=== PATIENT | male | born 1950 | race Caucasian/White ===

== ENCOUNTER 2019-05-20 18:10 | Emergency (ER) | payer MEDICARE, MEDICAID ==
[~2019-05-20] VITALS: Ht 190.5 cm; Wt 84.1 kg
[2019-05-20 18:12] VITALS: Ht 190.5 cm; Wt 84.1 kg
[2019-05-20] MEDS ORDERED: ASPIRIN325 MG PO (18:15)
[2019-05-20] MEDS ORDERED: DONEPEZIL HCL10 MG PO (18:15)
[2019-05-20] MEDS ORDERED: MELATONIN 3 MG1 TAB PO (18:16)
[2019-05-20] MEDS ORDERED: CLARITIN 10 MG10 MG PO (18:16)
[2019-05-20] MEDS ORDERED: ZOLOFT50 MG PO (18:16)
[2019-05-20] MEDS ORDERED: LISINOPRIL20 MG PO (18:16)
[2019-05-20] MEDS ORDERED: NAMENDA5 MG PO (18:17)
[2019-05-20] MEDS ORDERED: ATIVAN0.5 MG PO (18:18)
[2019-05-20] MEDS ORDERED: HYDROCODON-ACE1 EAC7 PO (18:19)
[2019-05-20] MEDS ORDERED: MIRALAX17 GM PO (18:19)
[2019-05-20] MEDS ORDERED: ACETAMINOPHEN325 MG PO (18:20)
[2019-05-20 18:43] LABS: APPEARANCE SL CLDY (CLEAR); COLOR DK YELLOW (YELLOW)
[2019-05-20 18:44] LABS: BILIRUBIN NEGATIVE (NEGATIVE); GLUCOSE NEGATIVE (NEGATIVE); KETONE NEGATIVE (NEGATIVE); NITRITE NEGATIVE (NEGATIVE); PROTEIN NEGATIVE (NEGATIVE); SPECIFIC GRAVITY 1.025 (1.005-1.020); UROBILINOGEN NORMAL (NORMAL)
[2019-05-20 18:46] LABS: BACTERIA FEW /hpf (NEGATIVE); RED CELLS - URINE 0-5 /hpf (0-5); WHITE CELLS - URINE OCC /hpf (NEGATIVE)
[2019-05-20 19:15] VITALS: BP 145/76
== END 2019-05-20 21:35 ==
LOC: D.ER 18:10
PROVIDERS: Family Medicine
DX: Z71.1 Person with feared health complaint in whom no diagnosis is made (principal); W19.XXXA Unspecified fall, initial encounter; G30.9 Alzheimer's disease, unspecified; F02.80 Dementia in other diseases classified elsewhere, unspecified severity, without behavioral disturbance, psychotic disturbance, mood disturbance, and anxiety

== ENCOUNTER 2019-07-06 07:56 | Inpatient (IN) | payer MEDICARE ==
[~2019-07-06 07:56] MED LIST: ACETAMINOPHEN325 MG PO; ASPIRIN325 MG PO; ATIVAN0.5 MG PO; CLARITIN 10 MG10 MG PO; DONEPEZIL HCL10 MG PO; HYDROCODON-ACE1 EAC7 PO; LISINOPRIL20 MG PO; MELATONIN 3 MG1 TAB PO; MIRALAX17 GM PO; NAMENDA5 MG PO; ZOLOFT50 MG PO
--- NOTE | 2019-07-06 08:21 | NUR ---
BREAKFAST SERVED TO PT.
--- NOTE | 2019-07-06 08:39 | NUR ---
CLEANED PT OF BM. TOL. CASEY.
--- NOTE | 2019-07-06 09:00 | NUR ---
CALL TO SEBASTIAN, NURSE AT [facility] STATES THEY WANT PT TO GO TO [facility]. THEY ARE HAVING TOO MUCH TROUBLE WITH HIM. AND HE NEEDS TO BE EVALUATED THERE.
[2019-07-06 09:18] LABS: BASOPHILS 0.5 % (0-2); EOSINOPHILS 4.9 % (0-7); HEMOGLOBIN 11.6 g/dL (13.5-17.5); IMMATURE GRANULOCYTES 0.3 % (0-5); LYMPHOCYTES 21.5 % (15-50); MCH 28.6 pg (26.0-34.0); MCHC 32.2 g/dL (31.0-37.0); MCV 88.9 fL (80.0-100.0); MEAN PLATELET VOLUME 9.1 fL (7.4-10.4); MONOCYTES 9.8 % (2-11); PLATELET COUNT 169 10x3/uL (130-400); RBC 4.05 10x6/uL (4.20-6.10); RDW 15.7 % (11.5-14.5); WBC 3.7 10x3/uL (4.8-10.8)
--- NOTE | 2019-07-06 09:22 | NUR ---
ALF TAKING PT.
[2019-07-06 09:27] LABS: ANION GAP 8.8 mmol/L (8-16); CALCIUM 9.1 mg/dL (8.5-10.1); CARBON DIOXIDE 29.2 mmol/L (21.0-32.0); CREATININE - SERUM 1.2 mg/dL (0.6-1.3)
[2019-07-06 09:29] LABS: APTT 29.8 SECONDS (22.8-39.4); INR 1.14 (0.85-1.17); PROTIME 14.1 SECONDS (11.6-15.0)
[2019-07-06 09:58] LABS: ACETAMINOPHEN 0.3 ug/mL (10.0-30.0); ALBUMIN 2.8 g/dL (3.4-5.0); BILIRUBIN - TOTAL 0.34 mg/dL (0.2-1.3); CHOL - HDL RATIO 5.9 ratio (2.3-4.9); MAGNESIUM - SERUM 2.3 mg/dL (1.8-2.4); PROTEIN - SERUM 6.3 g/dL (6.4-8.2); THYROID STIMULATING HORMONE 1.5 uIU/mL (0.36-3.74)
[2019-07-06 10:00] VITALS: BP 108/68
--- NOTE | 2019-07-06 12:00 | NUR ---
REC'D PT FROM E.R. PER W/C WITH E.R. STAFF. PT WAS CALM AND FRIENDLY WITH STAFF. PT TRANFER WITH 2X PER STAFF. PT IS CONFUSED, ALERT TO SELF ONLY. PT ALLOWED STAFF TO OBTAIN WEIGHT, VITALS AND PARTIAL ASSESSMENT OF SKIN. PT COULD NOT STAND LONG ENOUGH FOR NURSE TO ASSESS BUTTOCKS. PT ONLY CAME WITH BELONINGS HE IS WEARING. VITALS: B/P: 100/68, P: 77, R:20, T: 97.8, O2 STAT: 100%. PT WEIGHT PER W/C SCALE 170.4. PT IS INCONTIENT WITH STOOL AND URINE. PT DOES HAVE A RIGHT HAND SKIN TEAR, PATIENT MOVING AROUND UNABLE TO MEASURE. LEFT FOREARM BRUISES AND SKIN TEAR TO POSTERIOR UPPER FOREARM. DRESSED DUE TO BLEEDING. UNABLE TO CONTACT FAMILY DUE TO FACILITY PHONE NUMBER CALLING INCORRECT FAMILY MEMBERS. UNABLE TO OBTAIN PASSCODE FROM FAMILY. ATTEMPTED TO ORIENT TO ROOM AND SURROUNDINGS PT UNABLE TO BE ORIENTED DUE TO LACK OF PERCEPTION AND POOR INSIGHT TO SITUATION. CHAIR ALARM IN PLACE AND ACTIVE. WILL BEGIN PLAN OF CARE.
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
[2019-07-06] MEDS ORDERED: ZOLOFT100 MG (13:28)
[2019-07-06] MEDS ORDERED: COLACE100 MG (13:29)
[2019-07-06] MEDS ORDERED: DEPAKOTE SPRIN125 MG (13:29)
[2019-07-06 13:32] VITALS: BP 108/98
[2019-07-06 21:00] VITALS: BP 119/69
--- NOTE | 2019-07-06 23:54 | NUR ---
PATIENT IS LETHARGIC, CONFUSED, WILL NOT COMMUNICATE. COMPLIANT WITH HIS MELATONIN. NOT ABLE TO MAKE NEEDS KNOWN.
[2019-07-07 09:12] VITALS: Wt 76.8 kg
--- NOTE | 2019-07-07 10:00 | NUR ---
STAFF ATTEMPTED TO REDIRECT PT WHEN HE BECAME COMBATIVE WITH STAFF. UNABLE TO REDIRECT PT AT THIS TIME. 3X STAFF ATTEMPTED. ATIVAN 0.5 MG AND HALDOL 2 MG IM GIVEN PER DR. ALONSO ORDER. WILL REASSESS FOR EFFECTIVENESS.
--- NOTE | 2019-07-07 11:17 | NUR ---
PT IS AWAKE AND ALERT TO PERSON ONLY. PT HAS NO INSIGHT INTO SITUATION AT THIS TIME. CALM AND COOPERATIVE WITH ASSESSMENT. PRESCRIBED MEDS PROVIDED ORDERED. MEDS CRUSHED IN PUDDING. TOLERATED WELL. MED COMPLIANT. REDIRECT AND REORIENT NEEDED. FALL PRECAUTIONS IN PLACE. WILL CPOC.
--- NOTE | 2019-07-07 11:50 | NUR ---
PRN EFFECTIVE AT THIS TIME.
--- NOTE | 2019-07-07 11:50 | HP ---
PATIENT: LASHAE DAMON MEDICAL RECORD: [id number] ACCOUNT: [id number] LOCATION:PIOTR [id number] : 49 ADMISSION DATE: 07/06/19 PCP: ANATOLIY CARRASQUILLO MD HISTORY AND PHYSICAL EXAMINATION IDENTIFYING DATA: The patient is 69 years old and he is admitted to the hospital on a voluntary basis. CHIEF COMPLAINT: Agitation. HISTORY OF PRESENT ILLNESS: The patient is referred to us by the [facility]. Apparently, he became combative with the staff and was not redirectable. I do not have details about what he has done and he is not able to provide any. He was sent to the Emergency Room for evaluation via ambulance and was not combative there. He was admitted here where he was combative and required medication to calm him. PAST MEDICAL HISTORY: Significant for hypertension. PAST PSYCHIATRIC HISTORY: Significant for an established diagnosis of dementia. FAMILY HISTORY: Unknown. ALLERGIES: No known drug allergies. CURRENT MEDICATIONS: Include, Aricept, aspirin, lisinopril, Claritin, melatonin, Zoloft, Namenda, Ativan, hydrocodone, MiraLax, and Tylenol. MENTAL STATUS EXAMINATION: The patient is awake, alert, and oriented to person and place, but not to time or situation. His mood is anxious. His affect is constricted. Thought processes are disorganized and he has no active thoughts of harming himself or others and no psychotic symptoms. SOCIAL HISTORY: The patient is . He does have adult children who are involved with his care. I do not have history about substance abuse or occupational functioning. ASSETS: Supportive family members. LIABILITIES: Limited insight. DIAGNOSTIC IMPRESSION: AXIS I: Advanced major neurocognitive disorder of the Alzheimer's type with behavioral disturbances. AXIS II: None. AXIS III: Hypertension. AXIS IV: Moderate. AXIS V: Global assessment of functioning is 35. PLAN: At this time, the patient is admitted to the hospital secondary to aggressive behavior at the custodial. The aggression is related to confusion associated with a dementing illness. The patient will be comprehensively evaluated from both a medical, psychological, and social standpoint. He will be treated with both mood stabilizing and memory enhancing medications as deemed appropriate. His long-term prognosis is guarded and he will be returned to the HISTORY AND PHYSICAL [id number] LASHAE DAMON custodial once stabilized from a behavioral standpoint. TRANSINT:[id number] Voice Confirmation ID: [id number] DOCUMENT ID: [id number] DENIS ALONSO MD at 1150 CC: [id number] DICTATION DATE: 07/06/19 1600 BRAZE OPERATOR: 07/06/19 1854 ADM IN [facility] [address] [place] [address]
--- NOTE | 2019-07-07 20:21 | NUR ---
PATIENT RECEIVED IN DAYROOM, VERY CONFUSED, NOT AWARE OF SELF, TIME OR SITUATION, COMPLIANT WITH MEDS. WILL FOLLOW POC
[2019-07-08 01:44] VITALS: BP 123/69
[2019-07-08 11:27] VITALS: BP 140/65
--- NOTE | 2019-07-08 13:20 | PN ---
PATIENT:LASHAE DAMON MEDICAL RECORD: [id number] LOCATION:PIOTR AlvaradoDavid112 ADMISSION DATE: 07/06/19 PROGRESS NOTE DATE OF SERVICE: 07/07/2019 SUBJECTIVE: The patient's case was discussed with staff. He has no new complaint. OBJECTIVE: The patient has been very agitated, confused, threatening, and did require some p.r.n. medication today. He has no recollection of this. ASSESSMENT: Dementia. PLAN: The patient is going to be started on a scheduled dose of Geodon to assist with his agitated behavior. He will be monitored for clinical changes associated with its use. His long-term prognosis is guarded. TRANSINT:[id number] Voice Confirmation ID: [id number] DOCUMENT ID: [id number] DENIS ALONSO MD at 1320 CC: [id number] DICTATION DATE: 07/07/19 1200 GOLD LEAF LAYER: 07/07/19 1349 ADM IN [place] [address] [place] [address]
--- NOTE | 2019-07-08 14:49 | NUR ---
PT IS AWAKE AND ALERT TO PERSON ONLY. CALM AND COOPERATIVE WITH ASSESSMENT. PRESCRIBED MEDS PROVIDED ORDERED. MED COMPLIANT. PT CAN BE VERY COMBATIVE WITH STAFF DURING CARE. HARD TO REDIRECT AT TIMES. REDIRECT AND REORIENT NEEDED. FALL PRECAUTIONS IN PLACE. WILL CPOC.
--- NOTE | 2019-07-08 17:27 | NUR ---
SW STILL UNABLE TO GET ASSESSMENT DUE TO PT'S COGNITION AND NO CONTACTS AT THIS TIME.
[2019-07-08 20:00] VITALS: BP 98/60
--- NOTE | 2019-07-08 21:39 | NUR ---
RECEIVED IN HALLWAY OUTSIDE OF NURSES STATION. CALM AND COOPERATIVE WITH CARE AND ASSESSMENT. NO AGGRESSIVE BEHAVIORS. REDIRECT AND REORIENT NEEDED. RESTING IN BED WITH EYES CLOSED AT THIS TIME. CONTINUE PLAN OF CARE.
[2019-07-09 10:55] VITALS: BP 116/72
--- NOTE | 2019-07-09 15:13 | PN ---
PATIENT:LASHAE DAMON MEDICAL RECORD: [id number] LOCATION:Christiano[facility]OGER[facility]af Bray112 ADMISSION DATE: 07/06/19 PROGRESS NOTE DATE OF SERVICE: 07/08/2019 SUBJECTIVE: The patient's case was discussed with staff. He has no new complaint. OBJECTIVE: The patient denies that he would seek to harm himself or others. He is still significantly agitated. ASSESSMENT: Dementia. PLAN: The patient will be treated with a higher dose of Geodon. Geodon is being used to treat his underlying agitation. He will be monitored for clinical changes associated with its use. TRANSINT:[id number] Voice Confirmation ID: [id number] DOCUMENT ID: [id number] DENIS ALONSO MD at 1513 CC: [id number] DICTATION DATE: 07/08/19 1343 JACQUARD TWINE POLISHER OPERATOR: 07/08/19 2311 ADM IN [facility] [address] [place] [id number]
--- NOTE | 2019-07-09 15:43 | NUR ---
Nutrition Follow-up: Diet: Regular [facility] Soft PO intake: ~28% average x last 6 meals recorded Last BM: 07/07/19 x 2. WT: 169# (07/08/19); Admit wt: 171# (07/06/19) Will add Ensure TID with meals. RD following.
--- NOTE | 2019-07-09 16:29 | NUR ---
PT SONS HUY DAMON SHOWED UP AT CORRECTION UNIT TODAY. STAFF UNABLE TO CONTACT ANY FAMILY DUE TO INCORRECT NUMBERS PROVIDED PER SKILLED NURSING. INFO UPDATED AND CODE STATUS CHANGED TO DNR PER CHRISTINE BLANK. CHRISTINE'S # . ESTELA DAMON # [phone]. ESTELA SON STATES " MY DAD DID WEAR UPPER AND LOWER DENTURES AND GLASSES, BUT WE HAVENT SEEN THEM IN WHILE. " THIS NURSE CONFIRMED THEY DID NOT COME TO UNIT WITH PT. ESTELA SON STATED " YES MA THAT IS CORRECT." VISITING HOURS AND MEDICATIONS DISCUSSED WITH FAMILY. THIS NURSE SPOKE WITH CHRISTINE AND SHE STATED " I WILL BE THERE TOMORROW DURING VISITING HOURS.
--- NOTE | 2019-07-09 22:16 | NUR ---
RECEIVED IN HALLWAY OUTSIDE OF NURSES STATION. RESTING IN RECLINER WITH EYES OPEN. SHOWER GIVEN. CALM AND COOPERATIVE WITH CARE AND ASSESSMENT. NO AGGRESSIVE BEHAVIOR. REDIRECT AND REORIENT NEEDED. RESTING IN BED WITH EYES CLOSED AT THIS TIME. CONTINUE PLAN OF CARE.
[2019-07-10 07:23] LABS: ANION GAP 12.8 mmol/L (8-16); CALCIUM 9.6 mg/dL (8.5-10.1); CARBON DIOXIDE 27.8 mmol/L (21.0-32.0); CREATININE - SERUM 1.3 mg/dL (0.6-1.3); POTASSIUM - SERUM 4.6 mmol/L (3.5-5.1)
[2019-07-10 08:00] VITALS: BP 98/68
--- NOTE | 2019-07-10 13:49 | NUR ---
PT SITTING IN RECLINING CHAIR IN DAYROOM WITH PEERS. PT RESPONDS TO VERBAL STIMULI. ALERT TO SELF ONLY. PT IS VERY CONFUSED. PT HAS NO INSIGHT INTO HIS SITUATION. CALM AND COOPERATIVE WITH ASSESSMENT. PRESCRIBED MEDS PROVIDED ORDERED. MED COMPLIANT. REDIRECT AND REORIENT NEEDED. NO BEHAVIORS NOTED AT THIS TIME. WILL CPOC.
--- NOTE | 2019-07-10 13:51 | PN ---
PATIENT:LASHAE DAMON MEDICAL RECORD: [id number] LOCATION:Christ[facility]OGER[facility]af Bray112 ADMISSION DATE: 07/06/19 PROGRESS NOTE DATE OF SERVICE: 07/09/2019 SUBJECTIVE: The patient's case was discussed with staff. He has no new complaint. OBJECTIVE: The patient is quite disorganized. He is severely impaired cognitively. He is only eating marginally well. ASSESSMENT: Dementia. The patient will be started on Megace to assist with appetite stimulation. His long-term prognosis is guarded. Supportive and educational interventions were made with limited effect. TRANSINT:[id number] Voice Confirmation ID: [id number] DOCUMENT ID: [id number] DENIS ALONSO MD at 1351 CC: [id number] DICTATION DATE: 07/09/19 1638 DISPATCHER MOTOR VEHICLE: 07/10/19 0051 ADM IN [facility] [address] [place] [address]
[2019-07-10 20:35] VITALS: BP 109/75
--- NOTE | 2019-07-10 23:55 | NUR ---
RECEIVED IN DAYROOM. RESTING IN RECLINER WITH EYES OPEN. CALM AND COOPERTIVE WITH CARE AND ASSESSMENT. NO AGGRESSIVE BEHAVIORS. REDIRECT AND REORIENT NEEDED. RESTING IN BED WITH EYES CLOSED AT THIS TIME. CONTINUE PLAN OF CARE.
--- NOTE | 2019-07-11 09:00 | NUR ---
PT IS AWAKE AND ALERT TO SELF. CALM AND COOPERATIVE WITH ASSESSMENT. PRESCRIBED MEDS PROVIDED ORDERED. MED COMPLIANT. REDIRECT AND REORIENT NEEDED. PT IS VERY CONFUSED. PT DID WELL WITH MEALS TODAY WITH ASSISTANCE FROM STAFF. NO AGGRESSION NOTED AT THIS TIME. FALL PRECAUTIONS IN PLACE. WILL CPOC.
[2019-07-11 09:11] VITALS: BP 121/75
--- NOTE | 2019-07-11 10:12 | PN ---
PATIENT:LASHAE DAMON MEDICAL RECORD: [id number] LOCATION:[facility] Bray112 ADMISSION DATE: 07/06/19 PROGRESS NOTE DATE OF SERVICE: 07/10/2019 SUBJECTIVE: The patient's case was discussed with staff. He has no new complaint. OBJECTIVE: The patient is in good behavioral control. He has poor insight about his situation. ASSESSMENT: Dementia. PLAN: Current medicines have been reviewed and will be maintained. He seems calmer than he did yesterday or the day before and hopefully, the medicines are beginning to have a significant effect on his mood and behavior. TRANSINT:[id number] Voice Confirmation ID: [id number] DOCUMENT ID: [id number] DENIS ALONSO MD at 1012 CC: [id number] DICTATION DATE: 07/10/19 1537 CLAIMS ASSOCIATE: 07/10/19 2249 ADM IN [place] [id number] [place] [id number]
--- NOTE | 2019-07-11 22:18 | NUR ---
REC'D SITTING IN A CHAIR IN THE DAYROOM. ORIENTED TO SELF ONLY. NO EYE CONTACT. MUMBLES. PT DID RESPOND "PRETTY GOOD" WHEN ASKED HOW HE IS DOING BUT WAS NOT ABLE TO ANSWER ANYTHING ELSE. RESTLESS IN CHAIR. SCRATCHES NOTED TO INNER CALVES. ADMINISTER MEDS AND MOMITOR COMPLIANCE. REORIENT NEEDED. MED COMPLIANT. POOR REORIENTATION DUE TO IMPAIRED ABILITY TO PROCESS AND RETAIN INFORMATION.CONTINUE POC AND PROVIDE SAFE ENVIRONMENT.
--- NOTE | 2019-07-12 07:30 | NUR ---
The patient is awake and he is confused. He is nonsensical and has word salad. He is in a zehra chair in the hallway and he keeps trying to stand up alone. Provide prescribed meds. The patient is compliant with meds. Monitor for aggressive behavior. Continue POC.
--- NOTE | 2019-07-12 08:20 | NUR ---
The patient is trying to get up this am and he stood up and he fell and hit his left shoulder and left elbow. He has AROM, called his daughter Keren and let her know. Let Dr. Hoff be aware. Moved the patient in the nurses station to let him sit close to the nurse so that he will not stand and fall again.
[2019-07-12 09:26] VITALS: BP 102/70
--- NOTE | 2019-07-12 11:44 | PN ---
PATIENT:LASHAE DAMON MEDICAL RECORD: [id number] LOCATION:PIOTR Bray112 ADMISSION DATE: 07/06/19 PROGRESS NOTE DATE OF SERVICE: 07/11/2019 SUBJECTIVE: The patient's case was discussed with staff. He has no new complaint. OBJECTIVE: The patient is not eating adequately. He has poor insight about his situation. ASSESSMENT: Dementia. PLAN: Current medicines have been reviewed and will be maintained. Long-term prognosis is guarded. TRANSINT:[id number] Voice Confirmation ID: [id number] DOCUMENT ID: [id number] DENIS ALONSO MD at 1144 CC: [id number] DICTATION DATE: 07/11/19 1721 PATIENT RELATIONS COORDINATOR: 07/12/19 0214 ADM IN [place] [id number] [place] [address]
--- NOTE | 2019-07-12 13:07 | NUR ---
Nutrition Follow-up: Diet: Regular Mech Soft + Ensure with meals PO intake: ~34% average x last 9 meals Last BM: 07/07/19 x 2. WT: 169# (07/08/19); Admit wt: 170# (07/06/19) Meds noted: megace (started 07/12/19). Labs noted: Glu 121. Continue current nutrition regimen. Noted poor PO intake. Hopefully appetite/PO intake will improve with Megace. Consider increaseing bowel regimen to help promote BM regularity. RD following.
[2019-07-12 20:09] VITALS: BP 130/72
--- NOTE | 2019-07-12 23:24 | NUR ---
RECEIVED SITTING IN THE DAYROOM. WILL OCCASIONALLY SAY SOMETHING YOU CAN UNCERSTAND HOWEVER MOSTLY MUMBLES. OCCASSIONALLY WILL SCREAM OUT FOR NO REASON. CONFUSED. POOR EYE CONTACT. ADMINSITER MEDS AND MONITOR COMPLIANC.E REORIENT NEEDED. MED COMPLIANT. POOR REORIENTATION DUE TO IMPAIRED ABILITY TO COMPREHEND AND RETAIN INFORMATION. CONTINUE POC AND PROVIDE SAFE ENVIRONMENT.
[2019-07-13 08:20] VITALS: BP 133/77
--- NOTE | 2019-07-13 10:24 | NUR ---
The patient is awake and alert. He has not shown any aggression today. He does try to stand without assist. He is confused. Provide prescribed meds. The patient is compliant with meds. Continue POC.
--- NOTE | 2019-07-13 15:05 | PN ---
PATIENT:LASHAE DAMON MEDICAL RECORD: [id number] LOCATION:PIOTR Bray112 ADMISSION DATE: 07/06/19 PROGRESS NOTE DATE OF SERVICE: 07/12/2019 SUBJECTIVE: The patient's case was discussed with staff. He has no new complaint. OBJECTIVE: The patient is in good behavioral control. He has limited insight about his condition. He has not been aggressive. ASSESSMENT: Dementia. PLAN: This patient needs 30-mxzp-s-day supervision. The setting that is the least restrictive that will provide this is still unclear. TRANSINT:[id number] Voice Confirmation ID: [id number] DOCUMENT ID: [id number] DENIS ALONSO MD at 1505 CC: [id number] DICTATION DATE: 07/12/191826 ABORIGINAL CEREMONIAL CELEBRANT: 07/12/192014 ADM IN [facility] [address] [place] [address]
--- NOTE | 2019-07-13 20:51 | NUR ---
PT MANUAL BP 96/30. NOTIFIED DR. FRANCE AT 2044. ORDERED BMP AND HELD LISINOPRIL FOR AM PER EDILMA. CONTACTED LAB FOR STAT ORDER AND WILL CONTINUE TO MONITOR.
[2019-07-13 20:59] VITALS: BP 94/30
--- NOTE | 2019-07-13 21:09 | NUR ---
B.) PT IS ALERT AND ORIENTED TO SELF ONLY. HE HAS POOR INSIGHT INTO HIS SITUATION. HE IS UNABLE TO MAKE HIS NEEDS KNOWN OR ASSIST WITH ADL'S. I.) PROVIDE PM MEDICATIONS. REDIRECT OFTEN. R.) COMPLIANT WITH ALL MEDICATIONS. DIFFICULT TO REDIRECT. P.) WILL CONTINUE TO MONITOR.
[2019-07-13 21:15] LABS: ALBUMIN 2.7 g/dL (3.4-5.0); ANION GAP 12.8 mmol/L (8-16); BILIRUBIN - TOTAL 0.26 mg/dL (0.2-1.3); CALCIUM 9.2 mg/dL (8.5-10.1); CARBON DIOXIDE 26.1 mmol/L (21.0-32.0); CREATININE - SERUM 1.3 mg/dL (0.6-1.3); POTASSIUM - SERUM 3.9 mmol/L (3.5-5.1); PROTEIN - SERUM 6.6 g/dL (6.4-8.2)
--- NOTE | 2019-07-13 21:42 | NUR ---
22G IV STARTED IN RIGHT FOREARM. 1/2 NS @125 ML/HR. PT TOLERATED WELL WILL CONTINUE TO MONITOR.
--- NOTE | 2019-07-14 08:07 | PN ---
PATIENT:LASHAE DAMON MEDICAL RECORD: [id number] LOCATION:PIOTR [facility]var[address]112 ADMISSION DATE: 07/06/19 PROGRESS NOTE DATE OF SERVICE: 07/13/2019 SUBJECTIVE: The patient's case was discussed with staff. He has no new complaint. OBJECTIVE: The patient is in good behavioral control, but somewhat sedated. He is not sleeping at night, yet today he is difficult to arouse. ASSESSMENT: Dementia. PLAN: I am going to hold the patient's Geodon today. I will reassess him tomorrow. His condition is grave. His dementia is advanced and I am in agreement with the referral for hospice evaluation. TRANSINT:[id number] Voice Confirmation ID: [id number] DOCUMENT ID: [id number] DENIS ALONSO MD at 0807 CC: [id number] DICTATION DATE: 07/13/19 1615 ESCAPE WHEEL TOOTH CUTTER: 07/13/19 2311 ADM IN [facility] [address] [place] [address]
[2019-07-14 08:30] VITALS: BP 98/60
--- NOTE | 2019-07-14 11:14 | NUR ---
The patient is confused, he has poor insight into his situation. He has an IV in his right forearm. He is not showing any aggression, but he stiffens up when staff try to assist him with clothing or vital signs. Provide prescribed meds. The patient is compliant medications. Continue POC.
[2019-07-14 20:00] VITALS: BP 102/63
--- NOTE | 2019-07-15 02:27 | NUR ---
B) patient is alert and oriented to self, more alert this shift than previous day, I) Administered scheduled medications as ordered, monitored for safety R) Mediation compliant, restless at times, P) Continue plan of care.
[2019-07-15 06:03] LABS: ANION GAP 9.7 mmol/L (8-16); CALCIUM 8.9 mg/dL (8.5-10.1); CARBON DIOXIDE 25.3 mmol/L (21.0-32.0); CREATININE - SERUM 1.1 mg/dL (0.6-1.3)
[2019-07-15 11:09] VITALS: BP 122/88
--- NOTE | 2019-07-15 14:27 | PN ---
PATIENT:LASHAE DAMON MEDICAL RECORD: [id number] LOCATION:ChristianoDavidANANT Bray112 ADMISSION DATE: 07/06/19 PROGRESS NOTE DATE OF SERVICE: 07/14/2019 SUBJECTIVE: The patient's case was discussed with staff. He has no new complaint. OBJECTIVE: The patient is in good behavioral control, but very confused. His oral intake continues to be poor. He has not been aggressive in any significant way. ASSESSMENT: Dementia. PLAN: Current medicines have been reviewed. The patient is referred to hospice. I think this is appropriate given his overall condition. TRANSINT:[id number] Voice Confirmation ID: [id number] DOCUMENT ID: [id number] DENIS ALONSO MD at 1427 CC: [id number] DICTATION DATE: 07/14/19910 ANNUAL GIVING DIRECTOR: 07/14/19 1004 ADM IN [place] [id number] [place] [address]
--- NOTE | 2019-07-15 16:46 | NUR ---
UP IN FERCHO CHAIR.CONFUSED.ORIENTED TO SELF ONLY.IV OF 1/2NS AT 125ML/HR.INFUSING WELL TO RT FOREARM.YELLS OUT WITH ADL.WILL CONTINUE WITH CURRENT PLAN OF CARE,MONITOR FOR CHANGES AND SAFETY.
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
--- NOTE | 2019-07-15 21:32 | NUR ---
RECEIVED IN DAYROOM. SITTING IN A RECLINING CHAIR. IV INFUSING. CALM AND COOPERATIVE WITH CARE AND ASSESSMENT. NO SIGNS OF AGGRESSION. REDIRECT AND REORIENT NEEDED. IN SHOWER ROOM WITH MHT AT THIS TIME. CONTINUE PLAN OF CARE
--- NOTE | 2019-07-16 07:10 | NUR ---
IV INFILTRATED AND REMOVED PER Preet MENA RN.
--- NOTE | 2019-07-16 07:35 | NUR ---
IV RESITED IN LEFT HAND WITH #22G ANGIOCATH PER ELIZABETH BEARD RN.
--- NOTE | 2019-07-16 10:03 | NUR ---
PT TOOK MEDS WITH APPLESAUCE, TOLERATED WELL, CONTINUE WITH PLAN OF CARE
--- NOTE | 2019-07-16 13:13 | PN ---
PATIENT:LASHAE DAMON MEDICAL RECORD: [id number] LOCATION:MARYNawaf Bray112 ADMISSION DATE: 07/06/19 PROGRESS NOTE DATE OF SERVICE: 07/15/2019 SUBJECTIVE: The patient's case was discussed with staff. He has no new complaint. OBJECTIVE: The patient is withdrawn, not eating and minimally interacting. ASSESSMENT: Dementia. PLAN: The patient's prognosis is exceedingly poor. I anticipate transitioning him to hospice soon. TRANSINT:[id number] Voice Confirmation ID: [id number] DOCUMENT ID: [id number] DENIS ALONSO MD at 1313 CC: [id number] DICTATION DATE: 07/15/19 1439 COMMUNITY ARTS CENTRE MANAGER: 07/15/19 1626 ADM IN [place] [id number] [place] [address]
--- NOTE | 2019-07-16 13:15 | NUR ---
PATIENT HAS BEEN VERY RESTLESS TODAY AND IS A FEEDER. HE ATE ABOUT 85% OF HIS SUPPER. IV PULLED AND DISCONTINUED.
[2019-07-16] MEDS ORDERED: VITAMIN D31000 UNI2 PO (17:24)
[2019-07-16] MEDS ORDERED: MEGACE40 MG PO (17:24)
[2019-07-16 20:15] VITALS: BP 110/71
--- NOTE | 2019-07-16 21:31 | NUR ---
RECEIVED IN DAYROOM. SITTING IN A RECLINER AT THE TABLE WITH PEERS. CALM AND COOPERATIVE WITH CARE AND ASSESSMENT. NO SIGNS OF AGGRESSION. REDIRECT AND REORIENT NEEDED. RESTING IN BED WITH EYES CLOSED. CONTINUE PLAN OF CARE
--- NOTE | 2019-07-17 08:00 | NUR ---
REC'D PT SITTING IN CHAIR AWAITING BREAKFAST. NO ACUTE DISTRESS NOTED. PT EYES C OSED AT THIS TIME. PT ALERT AND ORIENTED TO PERSON ONLY WITH CONFUSION NOTED. CHAIR ALARM IN PLACE AND ACTIVE. WILL CONT PLAN OF CARE.
--- NOTE | 2019-07-17 09:40 | NUR ---
SPOKE WITH [facility] [employer] [facility]. THIS NURSE GAVE REPORT TO NEHEMIAS FERNANDEZ. PAPERWORK FAXED. PAPER COPY PACKED WITH PT BELONGINGS. WILL NOTIFY [facility] FOR TRANSPORT.
--- NOTE | 2019-07-17 09:49 | NUR ---
CALLED [employer] FOR TRANSPORT TO [facility]. 30 MINS UNTIL TRANSPORT.
--- NOTE | 2019-07-17 09:54 | NUR ---
BRI CALLED FROM [facility] IN REGARDS TO PT LEAVING. NURSE TOLD HER THAT [facility] WAS NOTIFIED AND PT WOULD BE LEAVING IN 30 MINS. WILL NOTIFY HER WHEN PT DISCHARGED.
--- NOTE | 2019-07-17 10:51 | NUR ---
NOTIFIED NATASHA BOWIE DAUGHTER OF PT DISCHARGE. DAUGHTER THANKED NURSE AND VOICED UNDERSTANDING.
--- NOTE | 2019-07-17 10:51 | NUR ---
PATIENT DISCHARGED WITH [facility] TO [facility]. PT STABLE AT TIME OF DISCHARGE. PAPERWORK SENT WITH PT AND EMS. PCS SENT WITH PT. [facility] TO TRANSFER PT. NOTIFIED [facility].
--- NOTE | 2019-07-17 11:11 | PN ---
PATIENT:LASHAE DAMON MEDICAL RECORD: [id number] LOCATION:PIOTR Bray112 ADMISSION DATE: 07/06/19 PROGRESS NOTE DATE OF SERVICE: 07/16/2019 SUBJECTIVE: The patient's case was discussed with staff. He has no new complaint. OBJECTIVE: The patient denies intent to harm himself or others. He is only partially oriented. He has almost no insight about his situation. ASSESSMENT: Dementia. PLAN: As previously documented, the patient's dementia is end-stage. Everything that can reasonably be done to assist him has been done and tomorrow, he will be discharged under hospice care. He is unlikely to survive much longer unless continued support with intravenous fluid is provided, which is obviously not a long-term solution. TRANSINT:[id number] Voice Confirmation ID: [id number] DOCUMENT ID: [id number] DENIS ALONSO MD at 1111 CC: [id number] DICTATION DATE: 07/16/19 172 SPRAY CEMENTER: 07/17/19 0237 ADM IN [place] [id number] [place] [address]
--- NOTE | 2019-07-18 08:37 | PN ---
PATIENT:LASHAE DAMON MEDICAL RECORD: [id number] LOCATION:PIOTR [facility]var[address]112 ADMISSION DATE: 07/06/19 PROGRESS NOTE DATE OF SERVICE: 07/17/2019 SUBJECTIVE: The patient's case was discussed with staff. He has no new complaint. OBJECTIVE: The patient actually ate a little bit better yesterday. He still did not sleep well, but he does sleep throughout the day. His oral intake is still inadequate for long-term survival. ASSESSMENT: Dementia. PLAN: The patient is going to be transferred to the [facility] for hospice care today. Followup will be with the hospice staff and physician. TRANSINT:[id number] Voice Confirmation ID: [id number] DOCUMENT ID: [id number] DENIS ALONSO MD at 0837 CC: [id number] DICTATION DATE: 07/17/19 1322 SENIOR SOFTWARE DEVELOPMENT ENGINEER: 07/17/19 1405 DIS IN 07/17/19 [facility] [address] [place] [address]
== END 2019-07-17 10:51 | DRG 884 ==
LOC: D.ER 07:56 → D.PSYCH 09:06 → D.ER 09:17 → D.PSYCH 07-17 10:51
PROVIDERS: Family Medicine; ADMIT Psychiatry & Neurology Psychiatry; ATTEND Psychiatry & Neurology Psychiatry
DX: F02.81 Dementia in other diseases classified elsewhere, unspecified severity, with behavioral disturbance (principal); I10 Essential (primary) hypertension; G30.1 Alzheimer's disease with late onset; I25.10 Atherosclerotic heart disease of native coronary artery without angina pectoris; M17.12 Unilateral primary osteoarthritis, left knee; K59.00 Constipation, unspecified; F32.9 Major depressive disorder, single episode, unspecified; R26.9 Unspecified abnormalities of gait and mobility; Z86.73 Personal history of transient ischemic attack (TIA), and cerebral infarction without residual deficits